=== PATIENT | female | born 1940 | race Caucasian/White ===

== ENCOUNTER → 2018-06-22 | Outpatient (CLI) | payer OTHER ==
[~2018-06-22] MED LIST: ALEVE220 M1 PO; ASPIR 8181 MG; COREG CR10 MG; COZAAR 50 MG TA50 M2 PO; FLEXERIL PO; GLUCOPHAGE XR500 MG PO; HUMALOG100 UNIT/2 SQ; IRON325; LASIX 20 MG TAB20 MG; LEVEMIR SUBQ; MAXZIDE-25 MG1 EACH PO; MICRONASE5 MG PO; NORVASC10 MG PO; TOPROL XL100 MG PO; TRESIBA FL100 UNIT/1 SQ; ULTRAM 50MG TAB50 MG PO; VITAMINC500
[2018-06-22 07:52] LABS: POTASSIUM 4.3 mmol/L (3.5-5.1)
== END ==
LOC: M.LAB 04:51
PROVIDERS: Anesthesiology
DX: Z01.812 Encounter for preprocedural laboratory examination (principal); E11.9 Type 2 diabetes mellitus without complications; Z79.4 Long term (current) use of insulin